=== PATIENT | female | born 1955 | race Caucasian/White ===

== ENCOUNTER → 2018-05-02 | Outpatient (CLI) | payer MEDICARE ==
[~2018-05-02] MED LIST: ALB18R INH; AMLO-96 PO; ASP325 PO; ASP81 PO; ATOR20TA22 PO; BENA1TAB59 PO; CIPR-344 PO; FAMO20TA28 PO; FLUO-202 PO; FLUT1DIS28 IH; IBUP600T22 PO; OXYB10TA16 PO; OXYC-869 PO; PAN40 PO
--- NOTE | 2018-05-02 14:24 | RADIOLOGY IMAGING REPORT ---
FACILITY: [facility] - [place] PATIENT NAME: Catarina Cid : 1955 MR: [id number] V: [id number] EXAM DATE: ORDERING PHYSICIAN: DORY SEARS TECHNOLOGIST: Location: [facility] Patient: Catarina Cid : 1955 Visit/Account:[id number] Date of Sevice: 05/02/2018 ABDOMEN/PELVIS W/O CONTRAST HISTORY: History of kidney stones TECHNIQUE: Axial images acquired through the abdomen/pelvis. Coronal and sagittal reformatting also performed. No IV contrast administered. COMPARISON: June 27, 2015 FINDINGS: Visualized lung bases: Negative. Hepatobiliary: Postsurgical changes from a cholecystectomy Small area of decreased attenuation along the medial inferior right lobe minimally more prominent now measuring 1.7 x 0.7 cm as opposed to 1.3 x 0.7 cm. This could represent an area of focal fatty infi ltration although if of concern ultrasound or MR recommended . A small clip or calcination is seen along the posterior medial border of the liver unchanged Spleen: Negative. Adrenals: Negative. Pancreas: Negative. Kidneys ureters and bladder: Two punctate 1 mm nonobstructing calculi are seen in the right renal col lecting system. There are two nonobstructing calculi seen in the left renal collecting system larges t measures approximately 2 mm in the lower pole. No ureteral calculi are seen Genitalia: There is a lobular contour to the uterus suspicious for fibroids GI: Mild diverticulosis of the left-sided colon although no CT evidence of acute diverticulitis Small hiatal hernia The appendix is visualized and does not appear inflamed Vessels/spaces/nodes: Negative. Bones/soft tissues: Spondylotic changes of the lumbar spine . Several nodular areas are seen in th e inferior portion of both breasts. Correlation with mammography recommended Additional findings: None pertinent. IMPRESSION: Nonobstructing calculi seen in both renal collecting systems Postsurgical changes from a cholecystectomy Small hypoattenuating region along the inferior medial right lobe of liver minimally more prominent c ould represent an area of focal fatty infiltration. If further imaging is desired ultrasound or MR m ay be helpful Lobular contour to the uterus suspicious for multiple fibroids Small hiatal hernia Mild diverticulosis left-sided colon Nodular densities are seen in the inferior portion of both breast. Correlation with mammography jack mmended Report Dictated By: Livier Paris MD at 05/02/2018 2:06 PM Report E-Signed By: Livier Paris MD at 05/02/2018 2:20 PM WSN:[email or web address]
== END ==
LOC: CT 01:49
PROVIDERS: ATTEND Urology
DX: N20.0 Calculus of kidney (principal); Z90.49 Acquired absence of other specified parts of digestive tract; K76.0 Fatty (change of) liver, not elsewhere classified; D25.9 Leiomyoma of uterus, unspecified; K44.9 Diaphragmatic hernia without obstruction or gangrene; K57.30 Diverticulosis of large intestine without perforation or abscess without bleeding
CPT/HCPCS: 74176

== ENCOUNTER → 2018-05-10 | Outpatient (CLI) | payer MEDICARE, OTHER ==
--- NOTE | 2018-05-11 09:36 | RADIOLOGY IMAGING REPORT ---
FACILITY: [facility] - [place] PATIENT NAME: CALI RAMIREZ : [id number] MR: [id number] V: [id number] EXAM DATE: [id number] ORDERING PHYSICIAN: CALVIN LOPEZ TECHNOLOGIST: Marielos Melgar RDMS(ABD,OBGYN,BR),RVT PROCEDURE:US BILATERAL BREAST COMPARISON:Today's bilateral diagnostic mammogram. INDICATIONS:FURTHER EVALUATION FINDINGS: There are multiple small cysts and well circumscribed hypoechoic nodules seen throughout the breasts. In the 11 o'clock position of the Left breast 3cm from the nipple there are 2 adjacent very ovoid hypoechoic nodules one measuring 0.9 x 0.8 x 0.5mm and one measuring 0.6 x 0.5 x 0.4mm. The nodules are wider than tall. There is no acoustic shadowing. DIAGNOSTIC CATEGORY 3--PROBABLY BENIGN FINDING. RECOMMENDATIONS: SIX MONTH FOLLOW-UP DIAGNOSTIC MAMMOGRAM: BILATERAL BREASTS. SIX MONTH FOLLOW-UP ULTRASOUND: LEFT BREAST. IMPRESSION: BIRADS 3: Probably benign finding. A 6 month follow-up Left breast ultrasound and bilateral diagnostic mammogram recommended to document stability of the well circumscribed hypoechoic nodules in the 12 o'clock position of the Left breast and to document stability of the fusllie heterogeneous parenchymal pattern in the breasts sense there are no mammograms prior to Today's study for comparison. Dictated by: Livier Paris M.D. on 05/10/2018 at 17:09 Transcribed by: TEE on 05/11/2018 at 8:50 Approved by: Livier Paris M.D. on 05/11/2018 at 9:35 [facility]
--- NOTE | 2018-05-11 09:36 | RADIOLOGY IMAGING REPORT ---
FACILITY: [facility] PATIENT NAME: CALI RAMIREZ : [id number] MR: [id number] V: [id number] EXAM DATE: [id number] ORDERING PHYSICIAN: CALVIN LOPEZ TECHNOLOGIST: Indira Zavala PROCEDURE:BILATERAL DIAGNOSTIC DIGITAL MAMMOGRAM WITH CAD ASSISTED INTERPRETATION & 3D TOMOSYNTHESIS COMPARISON:None. INDICATIONS:follow-up nodules seen on recent CT FINDINGS: Dense very heterogeneous fibroglandular tissue is seen throughout the breasts. There are numerous nodular densities scattered throughout both breasts in addition to course calcifications. Today's bilateral breast Ultrasound demonstrated numerous cysts throughout the breasts and 2 ovoid hypoechoic nodules in the 12 o'clock position of the Left breast. Sense there are no mammograms prior to Today's study available for comparison and due to the extreme heterogeneity a 6 month follow-up bilateral mammogram is recommended and a 6 month Left breast Ultrasound. DIAGNOSTIC CATEGORY 3--PROBABLY BENIGN FINDING. RECOMMENDATIONS: SIX MONTH FOLLOW-UP DIAGNOSTIC MAMMOGRAM: BILATERAL BREASTS. SIX MONTH FOLLOW-UP ULTRASOUND: LEFT BREAST. IMPRESSION: BIRADS 3: Probably benign finding. Six month follow-up Left breast Ultrasound and bilateral mammogram recommended as described above. Dictated by: Livier Paris M.D. on 05/10/2018 at 17:12 Transcribed by: TEE on 05/11/2018 at 8:19 Approved by: Livier Paris M.D. on 05/11/2018 at 9:35 [facility]
== END ==
LOC: MAMO 01:01
PROVIDERS: ATTEND Nurse Practitioner Family
DX: N60.02 Solitary cyst of left breast (principal); N60.01 Solitary cyst of right breast
CPT/HCPCS: 76641; 77062; 77066

== ENCOUNTER → 2018-05-23 | Outpatient (CLI) | payer MEDICARE, OTHER ==
[~2018-05-23] MED LIST changes: +RANI-366 PO
[2018-05-23 09:44] LABS: PLATELET COUNT, AUTOMATED 299 K/uL (150-450)
[2018-05-23 10:03] LABS: LDL CHOLESTEROL 124 mg/dl
== END ==
LOC: LAB 09:11
PROVIDERS: ATTEND Nurse Practitioner Family
DX: K76.9 Liver disease, unspecified (principal); E78.5 Hyperlipidemia, unspecified; I10 Essential (primary) hypertension
CPT/HCPCS: 36415; 82040; 82247; 82310; 82374; 82435; 82465; 82565; 82947; 83036; 83718; 84075; 84132; 84155; 84295; 84443; 84450; 84460; 84478; 84520; 85025; 86706; 86707; 87340; 87350; 87522

== ENCOUNTER → 2018-05-25 | Outpatient (REF) | payer MEDICARE, OTHER | LOC: ZZSENDIN 12:38 | PROVIDERS: ATTEND Surgery | DX: R19.7 Diarrhea, unspecified (principal) | CPT/HCPCS: 82274; 82705; 83630; 87045; 87177; 87205; 87324; 87449 ==

== ENCOUNTER 2018-05-30 14:28 | Outpatient (RCR) | payer MEDICARE, OTHER ==
--- NOTE | 2018-05-30 13:19 | RADIOLOGY IMAGING REPORT ---
FACILITY: [facility] PATIENT NAME: Catarina Cid : 1955 MR: [id number] V: [id number] EXAM DATE: ORDERING PHYSICIAN: DIVINE FAY TECHNOLOGIST: Location: [facility] [place] Patient: Catarina Cid : 1955 Visit/Account:[id number] Date of Sevice: 05/30/2018 UPPER GI W/SMALL BOWEL SERIES HISTORY: Acid reflux. Weight loss. Air-contrast upper GI. Small bowel follow-through FINDINGS: Study demonstrates normal pharyngeal esophageal swallowing mechanism and motility. There were no eso phageal mass lesions strictures or mucosal abnormalities. In the recumbent position the patient was noted to have a moderate sliding hiatal hernia with signifi cant gastroesophageal reflux extending up to the thoracic inlet. The stomach duodenum bulb and duodenal sweep are normal. No gastric mass lesions or mucosal abnormal ities noted. Small bowel follow-through demonstrated normal appearing jejunal and ileal bowel loops with no mucosa l abnormality strictures are mass lesions. Terminal ileum was normal. IMPRESSION: 1. Sliding hiatal hernia with a fairly significant gastroesophageal reflux extending to the thoracic inlet. Study otherwise unremarkable. Fluoroscopic time of 3.2 minutes. AK 169.3mGy Report Dictated By: Goyo Patel MD at 05/30/2018 1:12 PM Report E-Signed By: Goyo Patel MD at 05/30/2018 1:15 PM WSN:[email or web address]
[~2018-05-30 14:28] MED LIST changes: +BARIUM SULFATE 176 GM BTL PO ONE; +BARIUM SULFATE 340 GM POWD ONE
[2018-05-31] MEDS ORDERED: ROSU10TA5 PO (08:53)
[2018-05-31] MEDS ORDERED: METF-411 PO (08:53)
[2018-06-04] MEDS ORDERED: GADOBENATE 529MG/1ML 15ML VIAL IVP ONE (09:42)
[2018-06-04] MEDS ORDERED: NS 0.9% 25 ML BAG 25 ML ONE (09:42)
[2018-06-04] MEDS ORDERED: DIA5 PO (11:15)
== END 2018-05-30 18:00 | disposition home or self-care (01) ==
LOC: MRI 14:28
PROVIDERS: ATTEND Surgery
DX: K44.9 Diaphragmatic hernia without obstruction or gangrene (principal); K21.9 Gastro-esophageal reflux disease without esophagitis
CPT/HCPCS: 74245

== ENCOUNTER → 2018-06-06 | Outpatient (CLI) | payer MEDICARE, OTHER ==
[~2018-06-06] MED LIST changes: -BARIUM SULFATE 176 GM BTL PO ONE; -BARIUM SULFATE 340 GM POWD ONE; +DIA5 PO; +GADOBENATE 529MG/1ML 15ML VIAL IVP ONE; +METF-411 PO; +ROSU10TA5 PO
--- NOTE | 2018-06-06 09:23 | RADIOLOGY IMAGING REPORT ---
FACILITY: [facility] - [place] PATIENT NAME: Catarina Cid : 1955 MR: [id number] V: [id number] EXAM DATE: ORDERING PHYSICIAN: DIVINE FAY TECHNOLOGIST: Location: [facility] [place] Patient: Catarina Cid : 1955 Visit/Account:[id number] Date of Sevice: 06/06/2018 ABDOMEN W W/O CONTRAST HISTORY: Right lobe liver lesion ADDITIONAL HISTORY: None. TECHNIQUE: TECHNIQUE: Multiplanar multisequence magnetic resonance imaging of the abdomen with and without intravenous contrast. CONTRAST: 15 mL of MultiHance COMPARISON: CT abdomen pelvis May 02, 2018 FINDINGS: Visualized lung bases: Grossly unremarkable. Liver: One compared to the prior CT the previously noted area of decreased attenuation along the medi al inferior right lobe the liver is reidentified. There is no evidence of contrast enhancement. The re is signal dropout on the opposed phase images consistent with focal fatty deposit. Gallbladder: Surgically removed Bile ducts: Common bile duct is dilated up to 1 cm which can be seen in postcholecystectomy patients. No intrahepatic ductal dilatation Spleen: Negative. Adrenal glands: Negative. Pancreas: Negative. Kidneys: Parapelvic cysts bilaterally Vessels/spaces/nodes: No bulky adenopathy or ascities. Visualized GI: Small hiatal hernia. Mild diverticulosis left-sided colon Bones/soft tissues: No aggressive appearing bone lesions IMPRESSION: Previous noted small hyperattenuating region along the inferior medial right lobe the liver as seen o n the recent CT is consistent with a focal fatty deposit. Report Dictated By: Livier Paris MD at 06/06/2018 8:58 AM Report E-Signed By: Livier Paris MD at 06/06/2018 9:17 AM WSN:[email or web address]
== END ==
LOC: MRI 02:40
PROVIDERS: ATTEND Surgery
DX: K76.9 Liver disease, unspecified (principal)
CPT/HCPCS: 74183; A9577

== ENCOUNTER → 2018-08-30 | Outpatient (CLI) | payer MEDICARE, OTHER ==
[~2018-08-30] MED LIST changes: +AMLO-111 PO; -AMLO-96 PO; -GADOBENATE 529MG/1ML 15ML VIAL IVP ONE; -METF-411 PO; +METF-450 PO
[2018-08-30 07:54] LABS: PLATELET COUNT, AUTOMATED 324 K/uL (150-450)
[2018-08-30 08:11] LABS: LDL CHOLESTEROL 124 mg/dl
== END ==
LOC: LAB 07:38
PROVIDERS: ATTEND Nurse Practitioner Family
DX: E11.9 Type 2 diabetes mellitus without complications (principal); E78.5 Hyperlipidemia, unspecified; D72.829 Elevated white blood cell count, unspecified
CPT/HCPCS: 36415; 82040; 82247; 82310; 82374; 82435; 82465; 82565; 82947; 83036; 83718; 84075; 84132; 84155; 84295; 84450; 84460; 84478; 84520; 85025

== ENCOUNTER → 2019-01-03 | Outpatient (CLI) | payer MEDICARE, OTHER ==
[~2019-01-03] MED LIST changes: -AMLO-111 PO; +AMLO-125 PO
--- NOTE | 2019-01-04 09:47 | RADIOLOGY IMAGING REPORT ---
FACILITY: [facility] PATIENT NAME: CALI RAMIREZ : [id number] MR: [id number] V: [id number] EXAM DATE: [id number] ORDERING PHYSICIAN: CALVIN LOPEZ TECHNOLOGIST: Indira Zavala PROCEDURE:BILATERAL DIAGNOSTIC DIGITAL MAMMOGRAM WITH CAD ASSISTED INTERPRETATION & 3D TOMOSYNTHESIS COMPARISON:Prior mammogram 05/10/18. INDICATIONS:abnormal mammogram 6 month follow-up FINDINGS: The breasts are heterogeneously dense which can obscure small masses. The parenchymal pattern has remained stable allowing for difference in mammographic technique & patient positioning. Today's Left breast Ultrasound demonstrated a well circumscribed hypoechoic nodule in the 12 o'clock position of the Left breast that appeared relatively unchanged. A 6 month follow-up Left breast Ultrasound is recommended unless clinical findings warrant more immediate attention. DIAGNOSTIC CATEGORY 3--PROBABLY BENIGN FINDING. RECOMMENDATIONS: SIX MONTH FOLLOW-UP ULTRASOUND: LEFT BREAST. IMPRESSION: BIRADS 3: Probably benign finding. A 6 month follow-up Left breast Ultrasound is recommended as described in Today's Left breast Ultrasound report. Dictated by: Livier Paris M.D. on 01/03/2019 at 17:11 Transcribed by: TEE on 01/04/2019 at 9:06 Approved by: Livier Paris M.D. on 01/04/2019 at 9:45 [facility]
--- NOTE | 2019-01-04 09:47 | RADIOLOGY IMAGING REPORT ---
FACILITY: [facility] - [place] PATIENT NAME: CALI RAMIREZ : [id number] MR: [id number] V: [id number] EXAM DATE: ORDERING PHYSICIAN: CALVIN LOPEZ TECHNOLOGIST: Mayda Roman RDMS PROCEDURE:US LEFT BREAST COMPARISON:Prior Left breast Ultrasound 05/10/18. INDICATIONS:6 month follow-up FINDINGS: In the 12 o'clock position of the Left breast 3cm from the nipple there is an ovoid hypoechoic nodule measuring 4.7 x 5.7 x 4mm which is relatively unchanged when compared to the prior study. Second hypoechoic nodule previously noted in the 12 o'clock position of the Left breast is not seen. 1cm from the nipple in the 12 o'clock position there is now a 5mm cyst. In the 11 o'clock position of the Left breast there is a small collection of cysts measuring 7 x 5 x 7mm. DIAGNOSTIC CATEGORY 3--PROBABLY BENIGN FINDING. RECOMMENDATIONS: SIX MONTH FOLLOW-UP ULTRASOUND: LEFT BREAST. IMPRESSION: BIRADS 3: Probably benign finding. Only 1 of the 2 previously described hypoechoic nodules 12 o'clock position of the Left breast are identified and this appears relatively unchanged. There also appears to be a small collection of cysts in the 11 o'clock position of the Left breast and a small 5mm cyst in the 12 o'clock position of the Left breast 1cm from the nipple. A 6 month follow-up Left breast Ultrasound is recommended to evaluate for stability of the hypoechoic nodule in the 12 o'clock position. Dictated by: Livier Paris M.D. on 01/03/2019 at 17:07 Transcribed by: TEE on 01/04/2019 at 9:15 Approved by: Livier Paris M.D. on 01/04/2019 at 9:45 [facility]
== END ==
LOC: MAMO 00:44
PROVIDERS: ATTEND Nurse Practitioner Family
DX: N60.02 Solitary cyst of left breast (principal); N63.22 Unspecified lump in the left breast, upper inner quadrant
CPT/HCPCS: 77062; 77066

== ENCOUNTER → 2019-02-13 | Outpatient (CLI) | payer MEDICARE, OTHER ==
[~2019-02-13] MED LIST changes: +FLUT1DIS27 IH; +ROSU20TA5 PO
== END ==
LOC: LAB 07:21
PROVIDERS: ATTEND Nurse Practitioner Family
DX: Z02.9 Encounter for administrative examinations, unspecified (principal)

== ENCOUNTER → 2019-02-14 | Outpatient (CLI) | payer MEDICARE, OTHER ==
[2019-02-14 15:00] LABS: PLATELET COUNT, AUTOMATED 300 K/uL (150-450)
== END ==
LOC: LAB 14:06
PROVIDERS: ATTEND Nurse Practitioner Family
DX: E78.2 Mixed hyperlipidemia (principal); E11.9 Type 2 diabetes mellitus without complications
CPT/HCPCS: 36415; 82040; 82247; 82310; 82374; 82435; 82465; 82565; 82947; 83036; 83718; 84075; 84132; 84155; 84295; 84443; 84450; 84460; 84478; 84520; 85025